=== PATIENT | female | born 1980 | race Asian ===

== ENCOUNTER 2017-01-03 12:37 | Emergency (ER) | payer SELFPAY ==
[2017-01-03] MEDS ORDERED: diazePAM INJ 5 MG/ML SYRINGE ONE (12:53)
[2017-01-03] MEDS ORDERED: ONDANSETRON 4 MG/2 ML VIAL ONE ×2 (12:53→15:15)
[2017-01-03] MEDS ORDERED: diazePAM INJ 5 MG/ML SYRINGE IVP STA (12:54)
[2017-01-03] MEDS ORDERED: ONDANSETRON 4 MG/2 ML VIAL IVP STA ×2 (12:54→15:00)
[2017-01-03] MEDS ORDERED: MECLIZINE 12.5 MG TABLET PO ONE ×2 (13:48→14:48)
[2017-01-03] MEDS ORDERED: MECLIZINE 12.5 MG TABLET PO STA ×2 (13:48→14:40)
[2017-01-03] MEDS ORDERED: DEXAMETHASONE 10 MG/ML VIAL IVP STA (14:40)
[2017-01-03] MEDS ORDERED: DEXAMETHASONE 10 MG/ML VIAL ONE (14:48)
== END 2017-01-03 16:00 | disposition home or self-care (01) ==
DX: H81.399 Other peripheral vertigo, unspecified ear (principal); R11.2 Nausea with vomiting, unspecified
CPT/HCPCS: 36415; 80048; 84703; 96374; 96375; 96376; 99283; 99284; A9270